=== PATIENT | male | born 1965 | race Caucasian/White ===

== ENCOUNTER 2016-11-05 09:00 | Day surgery (SDC) | payer OTHER ==
[2016-11-05 09:19] VITALS: BMI 32.3
[2016-11-05] MEDS ORDERED: Pantoprazole 40 mg EC Tab PO STA (10:37)
[2016-11-05] MEDS ORDERED: Belladonna-Phenobarbital PO ONE (10:37)
--- NOTE | 2016-11-05 10:37 | CP.SDSHP ---
Same Day Surgery H & P - History Proposed Procedure: EGD Pre-Op Diagnosis: SEE NOTES - Previous Medical/Surgical History Cardiac: Hypertension Pulmonary: Asthma Endocrine/Metabolic: Other Neuro: Backaches Misc: Other Pain: 4.Moderate Pain - Allergies Allergies: Allergies Penicillins Allergy (Verified 11/05/16 09:18) SWELLING rashes and shortness of breath - Physical Exam General Appearance: N Vital Signs: Vital Signs 11/05/16 09:34 Temperature 96.6 F L Pulse Rate 61 Respiratory 18 Rate Blood Pressure 116/84 O2 Sat by Pulse 97 Oximetry Mental Status: Alert & Oriented x3 Neuro: WNL Heart: Other Lungs: Other GI: WNL - {Optional Preform as Required} Breast: WNL Abdomen: Other Rectal: Other Integument: WNL : WNL Ortho: Other ENT: WNL - Impression Pt. Evaluated Today:Candidate for Anesthesia & Procedure: Yes - Date & Time Time: 10:36 Short Stay Discharge - Short Stay Discharge Admitting Diagnosis/Reason for Visit: FUNCTIONAL DYSPEPSIA Disposition: HOME/ ROUTINE
[2016-11-05] MEDS ORDERED: Sucralfate 1 gm/10 ml Oral Susp UD PO ONE (10:55)
[2016-11-05 11:09] VITALS: TEMP 97.1
[2016-11-05 12:05] VITALS: BP 111/71; PULSE 77; RESP 15; O2SAT 100
== END 2016-11-05 12:00 | disposition home or self-care (01) ==
LOC: C.ENDO 09:00
PROVIDERS: ATTEND Specialist
DX: K20.9 Esophagitis, unspecified (principal); K25.9 Gastric ulcer, unspecified as acute or chronic, without hemorrhage or perforation; K29.60 Other gastritis without bleeding; K44.9 Diaphragmatic hernia without obstruction or gangrene